=== PATIENT | male | born 1955 | race Caucasian/White ===

== ENCOUNTER → 2018-05-25 | Outpatient (CLI) | payer BC, OTHER ==
[~2018-05-25] VITALS: Ht 177.8 cm; Wt 86.2 kg
[~2018-05-25] MED LIST: APAP500 PO; ASPIR 8181 MG PO; ASPIRIN325 PO; FISH OIL 1,001000 M2 PO; FISH OIL 1,2001 EAC4 PO; HYDROCODON-ACE1 EAC7 PO; IRBESARTAN-HCT1 EAC1 PO; LEVAQUIN 500 M500 M2 PO; LIPITOR80 MG PO; MEN'S ONE DAIL1 EAC1 PO; NORVASC10 MG PO; POTASSIUM99 M1 PO; TOPROL XL100 MG PO
--- NOTE | 2018-05-27 10:29 | P ---
[facility] [place] [place] [address] PROCEDURE REPORT Name: NOEL WHITING [facility] [id number] Admission: 05/25/18 Attend Phys: Micheal Collier Discharge: Date of : 55 Report #: [id number] THIS REPORT FOR: //name// CC: Micheal Campbell MD DATE OF SERVICE: 05/25/2018 PROCEDURE PERFORMED: Upper endoscopy with biopsies and esophageal dilation. HISTORY OF PRESENT ILLNESS: The patient is a 63-year-old male with a previous history of squamous cell carcinoma of the hypopharynx. He underwent chemoradiation therapy in 2016 and has been in remission. He complains of high dysphagia, no previous history of upper endoscopy since his chemotherapy and radiation therapy, particularly to pills. He denies any heartburn symptoms or odynophagia. Plan is for upper endoscopy with dilation. DESCRIPTION OF PROCEDURE: The risks and benefits of the procedure were explained to the patient, those risks including but not limited to bleeding, perforation and the risk of sedation. He understood these risks and gave informed consent. Sedation was given using propofol per Anesthesia. Next, using a standard Olympus upper endoscope, the scope was placed in the patient's mouth and advanced under direct vision through the esophagus, stomach and into the second portion of the duodenum. There was general edema noted in the hypopharynx area, which limited visualization of his larynx and vocal cords. The scope did pass through the upper esophagus without much difficulty. There appears to be a mild narrowing in the upper esophagus. No obvious stricture was noted in the mid to distal esophagus. This was normal. The GE junction was normal. Overall, the gastric mucosa was normal in the fundus and body; however, there was gastritis with multiple small erosions in the gastric antrum. No evidence of ulcerations or bleeding. Biopsies were obtained to rule out H. pylori. The pylorus was normal and patent. The duodenal bulb, first and second portion were all normal. The scope was then brought up into the patient's stomach and a Savary guidewire was inserted through the scope, leaving the guidewire in place as the scope was then withdrawn. Next, a 45-Syrian Savary dilation of the esophagus was performed without difficulty. The wire was left in place. The dilator was removed. The scope was reintroduced into the patient's stomach. There was evidence of 2 small mucosal tears in the upper esophagus. No evidence of bleeding. No further dilations were performed. The wire was then removed. The scope was also withdrawn and the procedure terminated. The patient tolerated the procedure well. IMPRESSION: [address] [id number] PROCEDURE REPORT Name: NOEL WHITING Room #: REG WOODY Wiggins#: [id number] Admission: 05/25/18 Attend Phys: Micheal Collier Discharge: Date of : 55 Report #: [id number] 1. Narrowing of upper esophagus, status post dilation. 2. Gastritis with gastric erosions in the gastric antrum. 3. Otherwise, normal upper endoscopy. RECOMMENDATIONS: 1. Await biopsy results. 2. Observe the patient post dilation. Thank you for allowing me to participate in his care. <ELECTRONICALLY SIGNED> By: Micheal Hopper MD 05/27/18 1029 [id number] Micheal Hopper MD /nt
--- NOTE | 2018-05-27 12:06 | PATH ---
[facility] [address] [place] [address] PATHOLOGY RPT PROCEDURE Name: JOHANNEJOHN M Room #: REG WOODY Becker.#: [id number] Admission: 05/25/18 Date of : 55 Discharge: Report #: [id number] Path Case #: [id number] [facility] Accession Number: [id number] . 01 Material submitted: . BX OF GASTRITIS R/O H. PYLORI . 01 Clinical history: . Pre-OP DX: Dysphagia Post-OP DX: Dysphagia, esophageal stricture, gastric erosions . 02 Diagnosis: Gastric mucosa, gastritis R/O H. pylori, endoscopic biopsy: - Mild chronic gastritis with features of reactive gastropathy. - Negative for intestinal metaplasia or atrophy. - Negative for Helicobacter pylori (properly controlled immunohistochemical stain performed). . (IUV:mml; 05/26/2018) QLM/05/26/2018 . 02 Electronically signed: . Beth Vaughan MD, Pathologist NPI- [id number] . 01 Gross description: . Received in formalin labeled "John Whiting, BX of gastritis, rule out H. pylori," are 3 segments of agustin soft tissue measuring 1.3 x 0.5 x 0.2 cm in aggregate dimensions and ranging from 0.4 to 0.7 cm in maximum dimension. The specimen is submitted entirely in cassette A1. (TSD; 05/25/2018) TOB/TOB . 02 Pathologist provided ICD-10: K29.50, K31.9 . 02 CPT . 291095, A00130 Specimen Comment: A courtesy copy of this report has been sent to Specimen Comment: [phone], . Specimen Comment: Report sent to / DR ESCOBEDO Specimen Comment: A duplicate report has been generated due to demographic updates. Performed at: [address] [id number] MD Stevie Serna MD Phone: [phone] [address] [address] PATHOLOGY RPT PROCEDURE Name: JOHN WHITING Room #: REG WOODY Wiggins#: [id number] Admission: 05/25/18 Date of : 55 Discharge: Report #: [id number] Path Case #: [id number] Performed at: [address] [facility] [address] [id number] MD Beth Vaughan MD Phone: [phone]
== END | disposition home or self-care (01) ==
LOC: GI 08:16
DX: K29.50 Unspecified chronic gastritis without bleeding (principal); K22.2 Esophageal obstruction; K31.9 Disease of stomach and duodenum, unspecified; I10 Essential (primary) hypertension; I25.10 Atherosclerotic heart disease of native coronary artery without angina pectoris; E78.5 Hyperlipidemia, unspecified; J43.9 Emphysema, unspecified; Z95.5 Presence of coronary angioplasty implant and graft; Z85.818 Personal history of malignant neoplasm of other sites of lip, oral cavity, and pharynx; Z87.891 Personal history of nicotine dependence; Z79.82 Long term (current) use of aspirin; Z79.899 Other long term (current) drug therapy
CPT/HCPCS: 62110; 62900

== ENCOUNTER → 2019-05-23 | Outpatient (CLI) | payer BC, OTHER | LOC: RAD 12:26 | DX: C13.9 Malignant neoplasm of hypopharynx, unspecified (principal); M25.78 Osteophyte, vertebrae ==

== ENCOUNTER → 2019-10-11 | Outpatient (CLI) | payer BC, OTHER | LOC: SJCVCIMAG 08:53 | PROVIDERS: ATTEND Internal Medicine Cardiovascular Disease | DX: I65.23 Occlusion and stenosis of bilateral carotid arteries (principal) ==